=== PATIENT | male | born 1995 | race Asian ===

== ENCOUNTER 2016-07-02 18:17 | Emergency (ER) | payer OTHER ==
[2016-07-02 18:26] VITALS: O2SAT 98
[2016-07-02 19:37] VITALS: BP 118/77; PULSE 92; RESP 18; TEMP 99.1
--- NOTE | 2016-07-02 19:41 | EDPHY ---
H & P Time Seen by Provider: 07/02/16 18:44 HPI/ROS: CHIEF COMPLAINT: URI symptoms HISTORY OF PRESENT ILLNESS: 21-year-old male presents emergency department complaining of sore throat, nasal congestion, mild cough and feeling tired over the past 2 days. Patient denies fevers. Reports he is taking ibuprofen 2 pills every 8 hours which is helpful. Patient denies ear pain, no headache, no neck pain. No history of asthma, he does not smoke cigarettes. He denies chest pain or shortness of breath. REVIEW OF SYSTEMS: A comprehensive 10 point review of systems is otherwise negative aside from elements mentioned in the history of present illness. Smoking Status: Former smoker Physical Exam: General: Alert, nontoxic. ENT: Tympanic membranes clear, external auditory canal, external ear and surrounding soft tissue including over the mastoid unremarkable. Nasopharynx is not injected, there is no rhinorrhea. Oropharynx with erythema. There is no exudate. Mild bilateral tonsillar hypertrophy. No asymmetry. The uvula is midline. No elevation of tongue. There is no hoarseness. No drooling, patient has good control of their oral secretions. No trismus. No stridor. Cardiac: Regular rate and rhythm. Respiratory: Lungs clear to auscultation bilaterally. Neurological: no meningismus. Skin: No rashes. Constitutional: Initial Vital Signs Temperature (C) 37 C 07/02/16 18:25 Heart Rate 96 07/02/16 18:25 Respiratory Rate 15 07/02/16 18:25 Blood Pressure 110/61 07/02/16 18:25 O2 Sat (%) 98 07/02/16 18:25 O2 Delivery Mode Room Air Allergies/Adverse Reactions: No Known Allergies Allergy (Verified 07/02/16 18:25) Home Medications: Medication Instructions Recorded Fluticasone Nasal [Flonase Nasal 1 sprays NASAL DAILY #1 mdi 07/02/16 Max (RX)] Guaifenesin/Codeine Phosphate 10 ml PO HS PRN #100 ml 07/02/16 [Guaifenesin-Codeine Liquid] MDM/Departure - Depart Disposition: Home, Routine, Self-Care Clinical Impression: Viral URI Condition: Good Instructions: Upper Respiratory Infection (ED) Additional Instructions: Take over the counter Tylenol and ibuprofen as instructed. 600 mg of ibuprofen every 8 hours with food 3-5 days alternating with 650 mg of Tylenol every 8 hours for 3-5 days. Use 1 spray of Flonase in each nostril daily for 1 week. Take cough syrup at night as needed, this has codeine in it and causes drowsiness, do not drive or operate any machinery while taking this. Rest, drink plenty of fluids. Use a saline nasal rinse, humidifier at night, hot steam showers. Return to the ED for difficulty breathing, chest pain, other concerns. Prescriptions: Fluticasone Nasal [Flonase Nasal Max (RX)] 1 sprays NASAL DAILY #1 mdi Guaifenesin/Codeine Phosphate [Guaifenesin-Codeine Liquid] 10 ml PO HS PRN #100 ml PRN Reason: Cough, Moderate Referrals: NONE *PRIMARY CARE P,. [Primary Care Provider] - As per Instructions
== END 2016-07-02 19:46 | disposition home or self-care (01) ==
DX: J06.9 Acute upper respiratory infection, unspecified (principal); Z87.891 Personal history of nicotine dependence

== ENCOUNTER 2016-07-12 16:03 | Emergency (ER) | payer OTHER ==
[2016-07-12] MEDS ORDERED: PROPARACAINE 0.5% 15 ML OPHT DROP OP ONE (16:46)
[2016-07-12] MEDS ORDERED: FLUORESCEIN SODIUM 1 MG STRIP OP ONE (16:51)
--- NOTE | 2016-07-12 16:54 | EDPHY ---
H & P Time Seen by Provider: 07/12/16 16:33 HPI/ROS: CHIEF COMPLAINT: Left eye irritation HISTORY OF PRESENT ILLNESS: Patient presents with left eye irritation today. No decrease in vision. No foreign body sensation or trauma. He was concerned because he thought he saw little speck of blood medially on the inferior eyelid near his nose. Primarily itchy. REVIEW OF SYSTEMS: No fever or chills PAST MEDICAL HISTORY: Negative General Appearance: Alert, no distress. Visual acuity: 20/25 each eye and bilaterally Lids and Lashes: No edema, no stye, no erythema. Conjunctivae: Mildly injected but no exudate on the left. Sclera: No subconjunctival hemorrhage, no icterus. Pupils: Equal and round, normally reactive. Corneas: Left examined with fluoroscein, no uptake seen with slitlamp. No foreign body on surface of cornea. Anterior chamber: normal, no hyphema or hypopyon. External: No proptosis, no periorbital swelling or redness or tenderness. Emergency Department course/MDM: Patient likely has mild conjunctivitis but does not appear to be infectious as he does not have exudate or discharge. Does not have pain, primarily his itching with just some very mildly injected conjunctiva on the left. No cobblestoning. Patient would prefer to just try symptomatic treatment and not use antibiotics if I do not have a high suspicion for bacterial infection. I think that is reasonable given his minimal symptoms and is primarily itching component. Precautions discussed. Smoking Status: Former smoker Constitutional: Initial Vital Signs Temperature (C) 36.7 C 07/12/16 16:11 Heart Rate 89 07/12/16 16:11 Respiratory Rate 17 07/12/16 16:11 Blood Pressure 104/68 07/12/16 16:11 O2 Sat (%) 96 07/12/16 16:11 O2 Delivery Mode Room Air Allergies/Adverse Reactions: No Known Allergies Allergy (Verified 07/12/16 16:11) Home Medications: Medication Instructions Recorded NK [No Known Home Meds] 07/12/16 MDM/Departure - MDM Medications Given: Discontinued Medications Proparacaine HCl (Alcaine 0.5%) 1 drops OP EDNOW ONE Stop: 07/12/16 16:47 Last Admin: 07/12/16 17:36 Dose: 1 drop - Depart Disposition: Home, Routine, Self-Care Clinical Impression: Acute conjunctivitis of left eye Qualifiers: Acute conjunctivitis type: atopic Qualified Code(s): H10.12 - Acute atopic conjunctivitis, left eye Condition: Good Instructions: Conjunctivitis (ED) Additional Instructions: Probable allergic conjunctivitis. Cool compresses may help. Please return if you get worsening eye irritation or eye pain or decreased vision or drainage or discharge from the eye or eye redness. Referrals: Johnnie Nur [Medical Doctor] - 1 day, if not improved
[2016-07-12 17:39] VITALS: BP 101/66; PULSE 81; RESP 16; TEMP 98.4; O2SAT 100
== END 2016-07-12 17:39 | disposition home or self-care (01) ==
DX: H10.12 Acute atopic conjunctivitis, left eye (principal); Z87.891 Personal history of nicotine dependence

== ENCOUNTER 2016-09-08 23:47 | Emergency (ER) | payer OTHER ==
--- NOTE | 2016-09-09 00:22 | EDPHY ---
H & P Stated Complaint: c/o abd pain intermittent x 3 hrs, some nausea, no vomiting HPI/ROS: HPI CHIEF COMPLAINT: Abdominal pain HISTORY OF PRESENT ILLNESS: This patient otherwise healthy 21-year-old male, no significant medical history does not take any daily medications, presents emergency room with 3-4 hours of left-sided abdominal pain mid abdomen. No associated symptoms specifically denies fever, nausea, vomiting, diarrhea. He states since arriving to the emergency room is pain is now gone. Describes it as crampy. Denies chest pain or shortness of breath. States he had about 4 hours of crampy abdominal pain. Denies periumbilical pain or right lower quadrant pain the pain is located left side. Patient tells me that now resolved. He no longer has any abdominal pain no fever no vomiting. Past Medical History: No medical history Past Surgical History: No surgical history Social History: Student, denies drugs alcohol tobacco products Family History: States he has a lot of "cancer in his family" ROS REVIEW OF SYSTEMS: A comprehensive 10 point review of systems is otherwise negative aside from elements mentioned in the history of present illness. Exam Constitutional appears well nontoxic, triage nursing summary reviewed, vital signs reviewed, awake/alert. Eyes normal conjunctivae and sclera, EOMI, PERRLA. HENT normal inspection, atraumatic, moist mucus membranes, no epistaxis, neck supple/ no meningismus, no raccoon eyes. Respiratory clear to auscultation bilaterally, normal breath sounds, no respiratory distress, no wheezing. Cardiovascular rate normal, regular rhythm, no murmur, no edema, distal pulses normal. Gastrointestinal soft, non-tender, no rebound, no guarding, normal bowel sounds, no distension, no pulsatile mass. Genitourinary no CVA tenderness. Musculoskeletal no midline vertebral tenderness, full range of motion, no calf swelling, no tenderness of extremities, no meningismus, good pulses, neurovascularly intact. Skin pink, warm, & dry, no rash, skin atraumatic. Neurologic awake, alert and oriented x 3, AAOx3, moves all 4 extremities equally, motor intact, sensory intact, CN II-XII intact, normal cerebellar, normal vision, normal speech. Psychiatric normal mood/affect. Heme/Lymph/Immune no lymphadenopathy. Differential diagnosis includes but is not limited to and in no particular order : Bowel obstruction, appendicitis, gallbladder disease, diverticulitis, colitis , enteritis, perforated viscus, gastritis, GERD, esophagitis, urinary tract infection, pyelonephritis, kidney stones Medical Decision Making: Plan for this patient KUB x-ray, IV blood work including abdominal labs. Re-evaluation. Re-evaluation: 0106: At this time initially patient did not want any blood work or x-ray he was agreeable for a KUB and then decided he is okay with blood work however he then changed his mind he does not want any blood work. I explained that I cannot fully evaluate his abdominal pain without blood work. He is agreeable on the KUB. He tells me this time that his abdomen is not hurting him he would like to be discharged from the emergency room. His abdomen is benign here in the ER is KUB does not show anything acute there is stool in his ascending colon. No free air. No abnormal bowel gas pattern. Explain we did not do a full workup and that since he wants to go home without any blood work I cannot fully evaluate his abdominal pain he understands he can go home but if he develops worsening abdominal pain he needs return to the emergency room for further evaluation. He is agreeable for this plan. Specifically nose return emergency room if he has any worsening abdominal pain fever vomiting. Source: Patient - Medical/Surgical History Hx Asthma: No Hx Chronic Respiratory Disease: No Hx Diabetes: No Hx Cardiac Disease: No Hx Renal Disease: No Hx Cirrhosis: No Hx Alcoholism: No Hx HIV/AIDS: No Hx Splenectomy or Spleen Trauma: No Other PMH: lypoma removed r shoulder - Social History Smoking Status: Current some day smoker Constitutional: Initial Vital Signs Temperature (C) 36.8 C 09/08/16 23:56 Heart Rate 79 09/08/16 23:56 Respiratory Rate 16 09/08/16 23:56 Blood Pressure 122/71 H 09/08/16 23:56 O2 Sat (%) 96 09/08/16 23:56 O2 Delivery Mode Room Air Allergies/Adverse Reactions: No Known Allergies Allergy (Verified 09/08/16 23:59) Home Medications: Medication Instructions Recorded NK [No Known Home Meds] 07/12/16 Departure - Departure Disposition: Home, Routine, Self-Care Clinical Impression: Abdominal pain Qualifiers: Abdominal location: unspecified location Qualified Code(s): R10.9 - Unspecified abdominal pain Condition: Good Instructions: Acute Abdominal Pain (ED) Additional Instructions: 1. You do not have a full evaluation here in the emergency room if you get home and have worsening abdominal pain please return to the emergency room stomach fully evaluate you. Return if you have fever, abdominal pain, vomiting. Referrals: NONE *PRIMARY CARE P,. [Primary Care Provider] - As per Instructions
[2016-09-09 01:29] VITALS: BP 129/72; PULSE 67; RESP 18; TEMP 99; O2SAT 98
== END 2016-09-09 01:27 | disposition home or self-care (01) ==
DX: R10.9 Unspecified abdominal pain (principal); F17.200 Nicotine dependence, unspecified, uncomplicated